=== PATIENT | female | born 1935 | race African-American/Black ===

== ENCOUNTER 2019-09-18 11:57 | Inpatient (IN) | payer MEDICARE ==
[~2019-09-18] VITALS: Ht 160 cm; Wt 57.4 kg
[2019-09-18] MEDS ORDERED: SODIUM CHLORIDE 0.9% 1,000 ML IV ONE (13:49)
[2019-09-18 14:18] LABS: BASOPHILS % 0.3 % (0.0-2.0); EOSINOPHILS % 0.3 % (0.0-5.0); HEMOGLOBIN. 13.4 g/dL (12.0-16.0); LYMPHOCYTES % 10.8 % (20.0-50.0); MEAN CORPUSCULAR HEMOGLOBIN 26.9 pg (28.0-32.0); MEAN CORPUSCULAR VOLUME 82.4 fL (81.0-99.0); MEAN PLATELET VOLUME 8.8 fl (7.4-10.4); MONOCYTES % 6.2 % (2.0-8.0); NEUTROPHILS % 82.4 % (40.0-76.0); PLATELET 148 x1000/uL (130-400); RED BLOOD CELL COUNT 4.97 mill/uL (4.2-5.4); RED CELL DISTRIBUTION WIDTH 14.7 % (11.6-14.6)
[2019-09-18 14:25] LABS: INR 0.9; PARTIAL THROMBOPLASTIN TIME 23.7 sec (23.4-31.0); PROTHROMBIN TIME 10.3 sec (9.6-11.0)
[2019-09-18 14:26] LABS: CHLORIDE 111 mEq/L (98-107)
[2019-09-18 15:18] LABS: CLARITY URINE CLEAR (CLEAR); COLOR URINE DARK YELLOW (YELLOW); KETONES URINE TRACE (NEGATIVE); LEUKOCYTE ESTERASE URINE TRACE (NEGATIVE); NITRITE URINE NEGATIVE (NEGATIVE); OCCULT BLOOD URINE NEGATIVE (NEGATIVE); PROTEIN URINE TRACE (NEGATIVE); SPECIFIC GRAVITY URINE 1.022 (1.005-1.030)
[2019-09-18] MEDS ORDERED: ASPIRIN 325MG EC TABLET PO ONE (15:45)
[2019-09-18] MEDS ORDERED: FLUCONAZOLE 50MG TABLET PO ONE (15:45)
[2019-09-18] MEDS ORDERED: FLUCONAZOLE 150MG TABLET PO ONE (16:00)
[2019-09-18 22:00] VITALS: BP 156/70
[2019-09-18 22:30] VITALS: BP 156/70
[2019-09-19] VITALS: BP_SYST 124; BP_SYST 139; BP_SYST 143; BP_DIAS 62; BP_DIAS 66; BP_DIAS 75
[2019-09-19 04:00] VITALS: BP 118/53
[2019-09-19 08:00] VITALS: BP 141/69
[2019-09-19] MEDS ORDERED: ACETAMINOPHEN 325MG TABLET PO PRN (11:00)
[2019-09-19] MEDS ORDERED: HYDROCODONE/ACETAMINOPHEN 5/325MG TABLET PO PRN (11:00)
[2019-09-19] MEDS ORDERED: LORAZEPAM 0.5MG TABLET PO PRN (11:00)
[2019-09-19] MEDS ORDERED: IPRATROPIUM/ALBUTEROL 0.5-3(2.5)MG/3ML NEB HHN PRN (11:00)
[2019-09-19] MEDS ORDERED: CLONIDINE 0.1MG TABLET PO PRN (11:00)
[2019-09-19] MEDS ORDERED: ONDANSETRON HCL 4MG/2ML INJ IV PRN (11:00)
[2019-09-19 11:17] LABS: *AMPHETAMINES SCREEN URINE NEGATIVE (NEGATIVE); *BARBITURATES SCREEN URINE NEGATIVE (NEGATIVE)
[2019-09-19 11:18] LABS: *BENZODIAZEPINES SCREEN URINE NEGATIVE (NEGATIVE); *COCAINE SCREEN URINE NEGATIVE (NEGATIVE); CANNABINOID URINE SCREEN NEGATIVE (NEGATIVE); METHADONE URINE SCREEN NEGATIVE (NEGATIVE); OPIATES URINE SCREEN NEGATIVE (NEGATIVE); PHENCYCLIDINE URINE SCREEN NEGATIVE (NEGATIVE)
[2019-09-19] MEDS ORDERED: FOLI-43 MT (11:20)
[2019-09-19] MEDS ORDERED: ATOR10TA69 MT (11:20)
[2019-09-19] MEDS ORDERED: ASPI-1497 MT (11:20)
[2019-09-19] MEDS: ASPIRIN 81MG TABLET PO SCH (11:55)
[2019-09-19] MEDS: FOLIC ACID 1MG TABLET PO SCH (11:55)
[2019-09-19 12:00] VITALS: BP 138/69
[2019-09-19 14:08] LABS: CREATINE KINASE MB FRACTION < 1.0 ng/mL (0.5-3.6)
[2019-09-19 14:11] LABS: CREATINE KINASE 128 IU/L (26-192)
[2019-09-19 20:00] VITALS: BP_SYST 124; BP_SYST 128; BP_SYST 142; BP_DIAS 65; BP_DIAS 67; BP_DIAS 68
[2019-09-19] MEDS ORDERED: ATORVASTATIN CALCIUM 10MG TABLET PO SCH (21:00)
[2019-09-20] VITALS: BP 129/62
[2019-09-20 04:00] VITALS: BP 121/62
[2019-09-20 07:37] LABS: CHLORIDE 111 mEq/L (98-107)
[2019-09-20 07:54] LABS: BASOPHILS % 0.4 % (0.0-2.0); EOSINOPHILS % 1.4 % (0.0-5.0); HEMATOCRIT. 36.9 % (36.0-48.0); HEMOGLOBIN. 12.1 g/dL (12.0-16.0); MEAN CORPUSCULAR HEMOGLOBIN 26.7 pg (28.0-32.0); MEAN CORPUSCULAR VOLUME 81.3 fL (81.0-99.0); MEAN PLATELET VOLUME 8.3 fl (7.4-10.4); NEUTROPHILS % 55.2 % (40.0-76.0); PLATELET 138 x1000/uL (130-400); RED BLOOD CELL COUNT 4.54 mill/uL (4.2-5.4); RED CELL DISTRIBUTION WIDTH 14.8 % (11.6-14.6)
[2019-09-20 08:00] VITALS: BP 133/98
[2019-09-20] MEDS: FOLIC ACID 1MG TABLET PO SCH (10:12)
[2019-09-20] MEDS: ASPIRIN 81MG TABLET PO SCH (10:12)
[2019-09-20 14:54] VITALS: BP 139/88
== END 2019-09-20 15:11 | disposition home or self-care (01) | DRG 74 ==
LOC: ER 12:07 → 5WST 15:48 → ENRESERV 19:56
PROVIDERS: ADMIT Internal Medicine; ATTEND Internal Medicine
DX: G90.8 Other disorders of autonomic nervous system (principal); B37.49 Other urogenital candidiasis; I10 Essential (primary) hypertension; M06.9 Rheumatoid arthritis, unspecified; D72.810 Lymphocytopenia; S09.90XA Unspecified injury of head, initial encounter; X58.XXXA Exposure to other specified factors, initial encounter; R74.0 Nonspecific elevation of levels of transaminase and lactic acid dehydrogenase [LDH]; Z79.899 Other long term (current) drug therapy; Y93.89 Activity, other specified; Y92.89 Other specified places as the place of occurrence of the external cause; Y99.8 Other external cause status
CPT/HCPCS: 36415; 71045; 78580; 80048; 80053; 80061; 80076; 80305; 81003; 82164; 82550; 82553; 82962; 83036; 83880; 84484; 85025; 85379; 93005; 93306; 93880; 97162; 99285; J7030